=== PATIENT | female | born 1935 | race Caucasian/White ===

== ENCOUNTER 2016-07-11 13:39 | Emergency (ER) | payer MEDICARE, OTHER ==
--- NOTE | ~2016-07-11 | CR63 ---
[facility]. [facility] A Service of [facility] [place] RADIOLOGY TEXT RESULTS PATIENT: JYOTI HUANG LOCATION: SED : 33 UNIT #: [id number] AGE: [address]: Orlando Biswas MD SEX: F ORDER DR: [id number] [place] [id number] E MR#: [id number] Acc #: [id number] NAME: JYOTI HUANG : 1935 SEX: F STUDY DATE/TIME: 07/11/2016 13:22 UNIT: SED ROOM: STUDY DESCRIPTION: CR Chest 2 View Attending Physician: Orlando Biswas M.D. Ordering Physician: Orlando Biswas M.D. MEDICAL IMAGING REPORT This report is preliminary unless electronic signature is present. EXAM PA and lateral chest, 07/11/2016 HISTORY Cough, sore throat and chest tightness for 1 week. FINDINGS 2 views of the chest demonstrate mild cardiac enlargement. Normal pulmonary vascularity. No airspace infiltrates or effusions. Mild hypertrophic spurring mid and lower thoracic spine. Mild mid-right thoracic curve. IMPRESSION No acute findings. Mild cardiac enlargement. No active disease in the lungs. Dictated by... Gary Jain M.D. THIS IS AN ELECTRONICALLY VERIFIED REPORT Gary Jain M.D. at 07/12/2016 3:01 PM BRYAN/jason TD: 07/12/2016 05:00 JOB #: [id number] MEDICAL IMAGING REPORT Page 1 of 1
[~2016-07-11 13:39] MED LIST: AMITRIPTYLINE H25 MG; AMLODIPINE BESYL5 MG; BIOTIN2500 MCG PO; CELEXA20 MG; CITRACAL200 MG; DIOVAN160 MG; DITROPAN XL5 M1; FISH OIL 1,21 CAP.EC PO; GLUCOSAMINE500 M1; KEPPRA500 MG; KLONOPIN0.5 M2; LOTENSIN40 MG; LYRICA75 MG; PROTONIX; TOPROL XL PO; VITAMIN B650 MG PO; VITAMIN C1000 M1 PO
[2016-07-11 13:46] LABS: INFLUENZA A NEG (NEG); INFLUENZA B NEG (NEG)
== END 2016-07-11 15:14 | disposition home or self-care (01) ==
LOC: SED 13:39
PROVIDERS: Emergency Medicine
DX: B34.9 Viral infection, unspecified (principal)
CPT/HCPCS: 71020; 87651; 87804; 99283